=== PATIENT | female | born 2000 | race Caucasian/White ===

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

== ENCOUNTER 2020-12-22 18:04 | Emergency (ER) | payer SELFPAY ==
[~2020-12-22] VITALS: Ht 165.1 cm; Wt 75.3 kg
[2020-12-22 18:14] VITALS: Ht 165.1 cm; Wt 75.3 kg
[2020-12-22 18:54] LABS: RED CELL DISTRIBUTION WIDTH 18.7 % (12.3-17.7)
[2020-12-22 18:55] LABS: PLATELET COUNT 569 x10^3mcL (179-408)
[2020-12-22 19:01] LABS: CALCIUM 8.9 mg/dL (8.5-10.1); CARBON DIOXIDE 25.6 mmol/L (21-32); CHLORIDE SERUM 103 mmol/L (98-107); CREATININE SERUM 0.9 mg/dL (0.6-1.0); GFR1 > 60 mL/min; GLUCOSE SERUM 98 mg/dL (74-106); POTASSIUM SERUM 3.3 mmol/L (3.5-5.1); SODIUM SERUM 139 mmol/L (136-145)
[2020-12-22 19:13] LABS: ALBUMIN 3.9 g/dL (3.4-5.0); ALKALINE PHOSPHATASE 74 U/L (46-116); ALT/SGPT 28 U/L (14-59); AST/SGOT 12 U/L (15-37); BILIRUBIN TOTAL 0.51 mg/dL (0.20-1.00); MAGNESIUM 2.2 mg/dL (1.8-2.4); TOTAL PROTEIN, SERUM 7.8 g/dL (6.4-8.2)
[2020-12-22 19:25] LABS: ovalocyte/elliptocyte 1+; rbc morphology (normal/abnorm) ABNORMAL (NORMAL)
[2020-12-22] MEDS ORDERED: IRON65 MG PO (19:25)
[2020-12-22 20:00] VITALS: BP 119/86
== END 2020-12-22 20:00 | disposition home or self-care (01) ==
LOC: ED 18:04
PROVIDERS: Student in an Organized Health Care Education/Training Program
DX: R07.89 Other chest pain (principal); R00.2 Palpitations; R06.02 Shortness of breath
CPT/HCPCS: 85378; J7030